=== PATIENT | female | born 1980 | race Caucasian/White ===

== ENCOUNTER 2016-10-30 23:29 | Emergency (ER) | payer SELFPAY ==
--- NOTE | 2016-10-30 23:47 | EDPHY ---
Mental Health General <Unruly Castillo - Last Filed: 10/31/16 06:45> Time Accepted for Transfer to Inpatient Psychiatric Care: 08:14 (Patient accepted at [facility]) Course: patient remained stable over course of my shift, awaiting acceptance to inpatient bed, awaiting transfer to inpatient facility <Cristina Zamora Hamida - Last Filed: 10/31/16 09:01> Previous Psychiatric History: depression Smoking Status: Never smoked Time Patient Placed on M1 Hold: 23:04 Time of Transfer of Care: 00:15 To Dr:: Jonathan <Kaela Mejia - Last Filed: 10/31/16 17:28> Narrative: CHIEF COMPLAINT: M1 hold, suicidal HISTORY OF PRESENT ILLNESS: 35-year-old female presents emergency department by police on an M1 hold. Patient texted her boyfriend that she was going to hang herself. He broke up with her a few days ago and her birthday is tomorrow , they were texting tonight. Patient was brought [facility] the [facility] they placed on an M1 hold and sent her to the emergency department. She was being uncooperative, combative and angry. Patient denies suicidal ideation , she denies previous suicide attempt. Patient reports she stopped taking her Celexa a few weeks ago. She denies drug and alcohol use REVIEW OF SYSTEMS: A comprehensive 10 point review of systems is otherwise negative aside from elements mentioned in the history of present illness. Physical Exam Gen: Alert and Oriented, angry, crying HEENT: PERRL, moist mucous membranes NECK: no meningismus CV: regular rate and regular rhythm PULM: CTAB, no wheezes BACK: No CVA tenderness NEURO: Neurologically grossly intact EXTREMITIES: normal appearing SKIN: no rash or break in skin on exposed skin PSYCH: Agitated, tearful, denies suicidal ideation, homicidal ideation, auditory and visual hallucinations. (Kaela Mejia) Medical Decision Makin care assumed by me from ANDREZ Mejia. Patient has a history of depression, is off her medications. Boyfriend broke up with a recent when she tact that she was going to hang herself. She is awaiting medical clearance. 0100 patient is medically cleared. Will be evaluated. Patient has been seen by the mental health internet manager. Plan is for placement. Patient is increasingly agitated. I have given her Zyprexa 5 mg p. o.. She is calm somewhat but is still not very cooperative. Mental Health evaluated or currently looking for placement 0700 Pt s/o to Dr Zamora pending placement. (Unruly Castillo) Advised by mental health at 8:15 a.m. that the patient has been accepted at [facility] by Dr Valdez. Nurse to nurse report should take place at 8:45 a.m. Transfer paperwork signed by myself at 9:00 a.m.. (Cristina Zamora) - Objective Vital Signs: Initial Vital Signs Temperature (C) 36.8 C 10/30/16 23:31 Heart Rate 60 10/30/16 23:31 Respiratory Rate 16 10/30/16 23:31 Blood Pressure 113/83 H 10/30/16 23:31 O2 Sat (%) 98 10/30/16 23:31 O2 Delivery Mode Room Air Allergies/Adverse Reactions: No Known Allergies Allergy (Unverified 10/30/16 23:33) Home Medications: Medication Instructions Recorded NK [No Known Home Meds] 10/30/16 Medications Given: Discontinued Medications Lorazepam (Ativan) 1 mg PO EDNOW ONE Stop: 10/31/16 04:21 Last Admin: 10/31/16 04:30 Dose: Not Given Lorazepam (Ativan) 1 mg PO EDNOW ONE Stop: 10/31/16 09:47 Last Admin: 10/31/16 09:51 Dose: Not Given Olanzapine (Zyprexa Zydis) 10 mg PO EDNOW ONE Stop: 10/31/16 05:01 Last Admin: 10/31/16 05:00 Dose: 10 mg Olanzapine (Zyprexa Zydis) 10 mg PO EDNOW ONE Stop: 10/31/16 09:47 Last Admin: 10/31/16 09:51 Dose: Not Given Laboratory Results: Laboratory Results 10/31/16 00:21 10/31/16 00:21 10/31/16 10/31/16 10/31/16 00:21 00:21 00:21 WBC 14.31 10^3/uL H 10^3/uL (3.80-9.50) Beta HCG, Qual NEGATIVE Ur Amphetamine Screen NEGATIVE (NEGATIVE) Departure <Unruly Castillo - Last Filed: 10/31/16 06:45> <Cristina Zamora - Last Filed: 10/31/16 09:01> <Kaela Mejia - Last Filed: 10/31/16 17:28> - Departure Disposition: Other Psych, Not Alexandre Clinical Impression: Suicidal ideation, Severe major depression Condition: Good Referrals: NONE *PRIMARY CARE P,. [Primary Care Provider] - As per Instructions
[2016-10-31 00:31] LABS: % IMMATURE GRANULYOCYTES 0.3 % (0.0-1.1); ABSOLUTE IMMATURE GRANULOCYTES 0.05 10^3/uL (0.00-0.10); ADD DIFF? NO; ADD MORPH? NO; ADD SCAN? NO; ATYPICAL LYMPHOCYTE FLAG 0 (0-99); FRAGMENT RBC FLAG 0 (0-99); HEMATOCRIT 42.2 % (38.0-47.0); HEMOGLOBIN 14.4 g/dL (12.6-16.3); LEFT SHIFT FLG 0 (0-99); LIPEMIA HEMOLYSIS FLAG 90 (0-99); MEAN CELL HEMOGLOBIN 30.4 pg (27.9-34.1); MEAN CELL HEMOGLOBIN CONCENTR. 34.1 g/dL (32.4-36.7); MEAN PLATELET VOLUME 10.4 fL (8.7-11.7); PLATELET CLUMPS FLAG 0 (0-99); PLATELET COUNT 276 10^3/uL (150-400); RED BLOOD CELL COUNT 4.74 10^6/uL (4.18-5.33); RED CELL DISTRIBUTION WIDTH 13.6 % (11.5-15.2)
[2016-10-31 00:48] LABS: ANION GAP 13 mEq/L (8-16); CALCIUM 10.2 mg/dL (8.5-10.4); CARBON DIOXIDE 23 mEq/l (22-31); CHLORIDE 108 mEq/L (97-110); CREATININE 0.8 mg/dL (0.6-1.0); ETHANOL SERUM < 10 mg/dL (0-10); GLOMERULAR FILTRATION RATE > 60; GLUCOSE 103 mg/dL (70-100); POTASSIUM 4.3 mEq/L (3.5-5.2); SODIUM 144 mEq/L (134-144)
[2016-10-31] MEDS ORDERED: LORazepam 1 MG TAB PO ONE ×2 (04:20→09:46)
[2016-10-31] MEDS ORDERED: LORazepam 1 MG TAB ONE (04:22)
[2016-10-31] MEDS ORDERED: OLANZapine DISINTEGR 10 MG TAB ONE (04:35)
[2016-10-31] MEDS ORDERED: OLANZapine 10 MG/2 ML VIAL IM ONE (04:35)
[2016-10-31] MEDS ORDERED: OLANZapine DISINTEGR 10 MG TAB PO ONE ×2 (05:00→09:46)
[2016-10-31 09:55] VITALS: BP 120/78; PULSE 70; RESP 16; TEMP 97.5; O2SAT 97
== END 2016-10-31 09:55 ==
DX: R45.851 Suicidal ideations (principal); F32.2 Major depressive disorder, single episode, severe without psychotic features
CPT/HCPCS: 80305; G0480

== ENCOUNTER 2016-12-26 22:45 | Emergency (ER) | payer SELFPAY ==
[2016-12-26] MEDS ORDERED: SKIN ADHESIVE (DERMABOND) 1 EACH TP ONE (22:51)
[2016-12-26 22:56] VITALS: BP 133/74; PULSE 102; RESP 18; TEMP 98.8; O2SAT 96
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
[2016-12-26 23:21] LABS: LITHIUM 0.4 mEq/L (0.6-1.2)
== END 2016-12-26 23:11 | disposition home or self-care (01) ==
LOC: EDUNIT#
PROC: 0HQ1XZZ Repair Face Skin, External Approach (ICD-10-PCS; principal; 2016-12-26)
DX: S01.81XA Laceration without foreign body of other part of head, initial encounter (principal); W22.8XXA Striking against or struck by other objects, initial encounter

== ENCOUNTER 2017-08-10 17:38 | Emergency (ER) | payer OTHER ==
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
[2017-08-10 17:55] VITALS: BP 122/76; PULSE 62; RESP 16; TEMP 98.2; O2SAT 97
[2017-08-10 18:26] LABS: PLATELET COUNT 292 10^3/uL (150-400)
[2017-08-11] MEDS ORDERED: OLANZapine 5 MG TAB PO ONE (03:38)
[2017-08-11] MEDS ORDERED: OLANZapine DISINTEGR 10 MG TAB ONE (03:38)
[2017-08-11] MEDS ORDERED: OLANZapine 10 MG/2 ML VIAL IM ONE (03:39)
[2017-08-11] MEDS ORDERED: OLANZapine 10 MG/2 ML VIAL ONE (03:42)
== END 2017-08-11 04:05 ==
LOC: EDUNIT#
DX: R45.851 Suicidal ideations (principal)
CPT/HCPCS: 80305; G0480